=== PATIENT | male | born 1995 | race Two or more races ===

== ENCOUNTER 2025-01-26 15:00 | Emergency (ER) | payer MEDICAID, SELFPAY ==
[2025-01-26 15:32] VITALS: BP 141/90; PULSE 77; RESP 18; TEMP 37.1; O2SAT 97; BMI 31.2
--- NOTE | 2025-01-26 15:39 | XR_ITS ---
Examination: Abdomen sonogram, Limited Date and time of exam: January 26, 2025 1542 hours INDICATIONS: Epigastric pain beginning 3 days ago Technique: Real-time mackey scale transabdominal sonographic images of the upper abdomen obtained. Findings: Normal gallbladder. Normal common bile duct 0.2 cm Pancreatic head 2.6 cm Liver 13.1 cm smooth contour no focal liver lesions Normal hepatopedal portal venous flow Patent IVC IMPRESSION: Normal gallbladder Fatty infiltration throughout the liver
--- NOTE | 2025-01-26 15:41 | PD.EDABDPN ---
ED Abdominal Pain RME/HPI General Chief Complaint: Abdominal Pain Stated complaint: Abdominal pain after eating Time seen by provider: 01/26/25 15:20 Arrival date/time: 01/26/25 15:00 RME / HPI RME / HPI narrative: 29-year-old male patient came in for evaluation regarding epigastric pain. Onset of symptoms for the last few days as epigastric pain especially after eating, severity moderate. No vomiting no fever no diarrhea no constipation no other complaints noted. Patient denies any alcohol abuse. Related Data Previous Rx's ?Medication ?Instructions ?Recorded sertraline 50 mg tablet 50 mg PO QDAY #30 tabs 05/27/23 famotidine 40 mg tablet (Pepcid) 40 mg PO BID #20 tabs 01/26/25 ondansetron HCl 4 mg tablet 4 mg PO Q8H PRN nausea and 01/26/25 vomiting 5 days #20 tabs Allergies Allergy/AdvReac Type Severity Reaction Status Date / Time No Known Allergies Allergy Verified 01/26/25 15:04 Review of Systems Review of Systems Narrative Review of Systems: Review of system reviewed and within normal limits except mentioned in HPI ED Exam Narrative Physical exam: VITAL SIGNS: Reviewed. GENERAL APPEARANCE: Alert and interactive, follows commands, no acute distress, HEAD AND FACE: Non-traumatic. ENT: PERRL, pink conjunctivitis, eyelid no trauma, Mucous membrane moist. NECK: Supple, nontender, no nuchal rigidity. CHEST: No tenderness, no crepitus, no paradoxical movement, no retractions. LUNGS: Clear, well ventilated, symmetric, no rales, no wheezing, no ronchi, no stridor, good breath sounds bilaterally. HEART: Regular rate, regular rhythm, no murmur, no gallops. ABDOMEN: Soft, positive bowel sounds, nondistended, no guarding, epigastric tenderness, no rebound, no masses, RECTAL: Deferred. GENITAL: Deferred. NEUROLOGICAL: Gross motor function intact sensory function intact, Appropriate for age. MUSCULOSKELETAL: low back nontender, full range of motion. EXTREMITIES: Nontender, full range of motion. SKIN: Color pink, dry, no rash, no lacerations, no abrasions, no contusions. LYMPHATICS: Deferred. Course Quality Measures none Orders Category Date Time Status US gall bladder Stat Exams 01/26/25 15:39 Completed CBC Stat Lab 01/26/25 16:05 Completed Comprehensive Metabolic Panel Stat Lab 01/26/25 16:05 Completed Lipase Stat Lab 01/26/25 16:05 Completed Prothrombin Time with INR Stat Lab 01/26/25 16:05 Completed mg Hyd/Al Hyd/Seda Susp [Maalox Susp] Med 01/26/25 15:40 Discontinued 30 ml PO X1 ONE Vital Signs Vital signs: Vital Signs Temperature 98.8 F 01/26/25 15:32 Pulse Rate 77 01/26/25 15:32 Respiratory Rate 18 01/26/25 15:32 Blood Pressure 141/90 H 01/26/25 15:32 Pulse Oximetry (%) 97 01/26/25 15:32 Oxygen Delivery Method Room Air 01/26/25 15:32 Abdominal Pain MDM [facility] Narrative MDM Narrative:: 29-year-old male patient came in for evaluation regarding epigastric pain. Onset of symptoms for the last few days as epigastric pain especially after eating, severity moderate. No vomiting no fever no diarrhea no constipation no other complaints noted. Patient denies any alcohol abuse. Patient's ultrasound of the abdomen Unremarkable. Patient's workup also came back normal. Results discussed with family and patient. Patient appears nontoxic and hemodynamically stable .Decision to discharge the patient. The patient/family was given an opportunity to ask questions and understood their discharge instructions. Discharge instructions specifically included follow up provider and time frame, current and/or new medications and possible side effects, indications for sooner follow up or return to the emergency department, and the expected course of current diagnosis. Patient reports feeling better as well and giving evidence of significant clinical improvement, I believe patient is now a candidate for discharge. Patient data External records reviewed:: None Clinical information provided by:: patient and family Social determinants that could affect healthcare access:: none Patient has the following chronic illnesses:: None How is presenting disease/condition affected by chronic disease/condition?: no chronic disease Evaluation data The following diagnostics were reviewed and interpreted by me:: lab results and radiology exam(s) Lab and/or radiology exams considered but not ordered:: None Interpretation Summary: See results MDM Medications / Prescriptions Medications or Prescriptions considered but not ordered:: None Medication administrations:: Medication Administration History Discontinued Medications Al Hydrox/Mg Hydrox/Simethicone (Mg Hyd/Al Hyd/Seda (Maalox Reg) Susp 30 Ml Udc) 30 ml PO X1 ONE Stop: 08/28/25 15:41 Maalox Consultations Consultation(s) initiated? (list below): No Diagnosis Differential diagnosis abdominal pain: abdominal pain and pancreatitis Most likely diagnosis given after review of the tests above:: Gastritis Admission Indicated Admission indicated?: not indicated Explain why admission is indicated or not indicated:: None Admission Request Was there a request for admission?: No Disposition Plan Disposition Plan: Discharge Discharge Attestation Discharge Attestation: The patient and all family members were given an opportunity to ask questions and understood the discharge instructions. Discharge instructions specifically effects, indications for sooner follow up or return to the emergency department, and the expected course of current diagnosis. Patient condition: Stable Discharge Plan Plan Patient Disposition: HOME (Self Care) Discharge Disposition comment: stable Prescriptions/Referrals Prescriptions/Med Rec: New famotidine [Pepcid] 40 mg tablet 40 mg PO BID Qty: 20 0RF ondansetron HCl 4 mg tablet 4 mg PO Q8H PRN (Reason: nausea and vomiting) 5 Days Qty: 20 0RF No Action sertraline 50 mg tablet 50 mg PO QDAY Qty: 30 0RF Rx Instructions: Directions in Italian Referrals: No Primary/Family,Physician [Primary Care Provider] - In 1 week Problem List Clinical Impression: Gastritis Patient/Caregiver Discharge Instructions Discharge Activity: activity as tolerated Education Materials: ED Gastritis (Adult) Additional Instructions: Thank you for the opportunity for serving you today. You are stable for discharged . You are advised to: Follow-up with your PCP in 1 to 2 days Return to ED for worsening of symptoms Increase oral fluids Take medication as prescribed Print Language: Italian Stand Alone Forms: Stacie Award Info., Patient Portal Info Letter GISSEL/JOE Supervising Physician SUSANA Supervising Physician: MD Ayaz
[2025-01-26 16:20] LABS: Basophils # (Auto) 0.1 Thou/mm3 (0.0-0.2); Basophils % (Auto) 1 % (0-2.5); Eosinophils # (Auto) 0.1 Thou/mm3 (0.0-0.5); Eosinophils % (Auto) 2 % (0-10); Hematocrit 43.9 % (41.0-53.0); Hemoglobin 16.1 g/dL (13.5-16.0); Immature Granulocytes Auto 0.06 Thou/mm3 (0.00-0.00); Lymphocytes # (Auto) 2.1 Thou/mm3 (1.0-4.8); Lymphocytes % (Auto) 27 % (10-50); Mean Corpuscular HGB Conc 36.7 g/dl (31.0-37.0); Mean Corpuscular Hemoglobin 30.7 pg (25.0-35.0); Mean Corpuscular Volume 84 fL (80-100); Monocytes # (Auto) 0.6 Thou/mm3 (0.0-0.8); Monocytes % (Auto) 8 % (0-12); Neutrophils # (Auto) 4.9 Thou/mm3 (1.8-7.7); Neutrophils % (Auto) 63 % (37-80); Nucleated Red Blood Cell # 0.00 Thou/mm3 (0.00-0.00); Nucleated Red Blood Cell % 0 /100 WBC (0); Platelet Count 179 Thou/mm3 (140-440); RDW Standard Deviation 37.3 fL (35.1-43.9); Red Blood Count 5.24 Miln/mm3 (4.50-5.90); White Blood Count 7.8 Thou/mm3 (3.8-10.6)
[2025-01-26 16:35] LABS: INR 1.1 (0.9-1.3); Prothrombin Time 11.5 Seconds (9.0-12.2)
[2025-01-26 16:47] LABS: Alanine Aminotransferase 42 U/L (10-49); Albumin, Serum 4.8 gm/dL (3.5-5.0); Albumin/Globulin Ratio 2.3 (1.2-2.2); Alkaline Phosphatase 80 U/L (46-116); Anion Gap 9 (7-16); Aspartate Amino Transferase 27 U/L (0-34); BUN/Creatinine Ratio 13 Ratio (12-20); Bilirubin,Total 0.9 mg/dL (0.3-1.2); Blood Urea Nitrogen 13 mg/dL (9-23); Calcium 10.0 mg/dL (8.3-10.6); Calcium (Corrected) 10.0 mg/dL (8.5-10.1); Carbon Dioxide 28.5 mMol/L (20.0-31.0); Chloride 106 mMol/L (98-107); Creatinine (Component) 1.0 mg/dL (0.6-1.3); Estimated Creatinine Clearance 126.2 mL/min (>60); Globulin 2.1 gm/dL (2.3-3.5); Glucose 82 mg/dL (74-106); Lipase 22 U/L (12-53); Osmolality,Calculated 284 (275-295); Potassium 3.8 mMol/L (3.4-5.1); Sodium 143 mMol/L (136-145); Total Protein 6.9 gm/dL (5.7-8.2); eGFR > 60 See Note
[2025-01-26 17:06] VITALS: BP 139/69; PULSE 83; RESP 17; TEMP 36.7; O2SAT 96
== END 2025-01-26 17:06 | disposition home or self-care (01) ==
PROVIDERS: Nurse Practitioner Family; Emergency Provider Family Medicine
DX: K29.70 Gastritis, unspecified, without bleeding (principal)
CPT/HCPCS: 36415; 76705; 80053; 83690; 85025; 85610; 99283

== ENCOUNTER 2025-03-14 08:32 | Emergency (ER) | payer MEDICAID, SELFPAY ==
[2025-03-14 08:44] VITALS: BP 136/87; PULSE 79; RESP 16; TEMP 37; O2SAT 98; BMI 29.8
--- NOTE | 2025-03-14 08:47 | XR_ITS ---
Examination: Abdomen sonogram, Limited Date and time of exam: March 14, 2025, 0900 hours INDICATIONS: Onset right upper abdominal pain beginning 2 days ago Technique: Real-time mackey scale transabdominal sonographic images of the upper abdomen obtained. Findings: Normal gallbladder. Normal common bile duct 0.3 cm Pancreatic head 2.5 cm Liver 15 cm fatty infiltration Normal hepatopetal portal venous flow Patent IVC IMPRESSION: Negative study
--- NOTE | 2025-03-14 08:47 | XR_ITS ---
Examination: Abdomen AP single view Technique: AP portable supine abdomen, single view Exam date and time: March 14, 2025, 0844 hours INDICATIONS: Abdominal pain and constipation beginning 2 days ago FINDINGS: Multiple air distended small bowel loops No free air Intact osseous structures IMPRESSION: Small bowel obstruction pattern, consider CT scan abdomen pelvis post intravenous contrast follow-up
--- NOTE | 2025-03-14 08:50 | EDNOTE_ITS ---
ED Abdominal Pain RME/HPI General Chief Complaint: Abdominal Pain Stated complaint: ABD PAIN Time seen by provider: 03/14/25 08:35 Arrival date/time: 03/14/25 08:32 29-year-old male with no known medical history presents to the emergency room with a chief complaint of epigastric abdominal pain x 2 days Source: patient Mode of arrival: ambulatory Limitations: no limitations Related Data Previous Rx's ?Medication ?Instructions ?Recorded sertraline 50 mg tablet 50 mg PO QDAY #30 tabs 05/27 famotidine 40 mg tablet (Pepcid) 40 mg PO BID #20 tabs 01/26/25 Allergies Allergy/AdvReac Type Severity Reaction Status Date / Time No Known Allergies Allergy Verified 03/14/25 11:08 Review of Systems Review of Systems Systems Reviewed: All systems reviewed, normal except as documented Constitutional Constitutional: Reports system reviewed and no additional complaints, except as documented, Denies fatigue, Denies fever(s), Denies headache(s) and Denies weakness Eyes Eyes: Reports system reviewed and no additional complaints, except as documented, Denies blurry vision and Denies change in vision ENT Ears, Nose, Mouth, and Throat: Reports system reviewed and no additional complaints, except as documented, Denies otalgia, Denies headache(s), Denies nasal congestion, Denies throat swelling and Denies vertigo Cardiovascular Cardiovascular: Reports system reviewed and no additional complaints, except as documented, Denies chest pain, Denies dyspnea and Denies dyspnea on exertion Respiratory Respiratory: Reports system reviewed and no additional complaints, except as documented, Denies chest congestion, Denies cough, Denies dyspnea, Denies dyspnea on exertion and Denies wheezing Gastrointestinal Gastrointestinal: Reports system reviewed and no additional complaints, except as documented, Reports abdominal pain, Reports cramping, Reports nausea and Denies vomiting Genitourinary Genitourinary: Reports system reviewed and no additional complaints, except as documented, Denies dysuria and Denies hematuria Musculoskeletal Musculoskeletal: Reports system reviewed and no additional complaints, except as documented and Denies back pain Integumentary/Breasts Skin/Breast: Reports system reviewed and no additional complaints, except as documented and Denies wounds Neurologic Neurologic: Reports system reviewed and no additional complaints, except as docu mented, Denies confusion, Denies headache(s), Denies lack of coordination, Denies vertigo and Denies weakness Psychiatric Psychiatric: Reports system reviewed and no additional complaints, except as documented, Denies anxiety, Denies confusion, Denies depression, Denies paranoia, Denies suicidal ideation and Denies tactile hallucinations Endocrine Endocrine: Reports system reviewed and no additional complaints, except as documented and Denies fatigue Hematologic/Lymphatic Hematologic/Lymphatic: Reports system reviewed and no additional complaints, except as documented and Denies lymphadenopathy Allergic/Immunologic Allergic/Immunologic: Reports system reviewed and no additional complaints, except as documented, Denies throat swelling, Denies urticaria and Denies wheezing Past Medical History Past Medical History CARDIAC: Negative Cardiac Disorders or Congestive Heart Failure RESPIRATORY: Negative Chronic Obstructive Pulmonary Disease (COPD) or Asthma GENITOURINARY: Negative Renal Disease ENDOCRINE: Negative Diabetes Mellitus Type 1 or Diabetes Mellitus Type 2 HEMATOLOGIC: Negative Sickle Cell Disease Social History SMOKING STATUS: Never smoker SECOND HAND EXPOSURE: Yes ED Exam General Limitations: Present no limitations General appearance: Present alert and in no apparent distress Head Head exam: Present atraumatic Eye Eye exam: Present normal appearance, PERRL and EOMI ENT ENT exam: Present normal exam, normal oropharynx and mucous membranes moist Neck Neck exam: Present normal inspection, full ROM and trachea midline Chest Chest inspection: Present normal inspection and symmetric chest wall rise Respiratory Respiratory exam: Present normal lung sounds bilaterally Cardiovascular Cardiovascular exam: Present regular rate, normal rhythm and normal heart sounds Abdominal Exam Abdominal exam: Present soft, tenderness and normal bowel sounds; Absent distention, guarding, rebound, rigidity or Pitt's sign Abdominal tenderness: Present epigastrium and moderate Extremities Exam Extremities exam: Present normal inspection and full ROM Back Exam Back exam: Present normal inspection and full ROM Neurological Exam Neurological exam: Present alert, oriented X3 and CN II-XII intact Psychiatric Psychiatric exam: Present normal affect and normal mood Skin Skin exam: Present warm, dry, intact and normal color Course Quality Measures none Orders Category Date Time Status COVID-19 Screening Questionnaire NOW Care 03/14/25 13:45 Active Decision to Admit X1 Care 03/14/25 13:45 Active Insert IV STAT Care 03/14/25 13:[address] abdomen pelvis wo con Stat Exams 03/14/25 09:40 Completed US gall bladder Stat Exams 03/14/25 08:47 Completed XR abdomen 1V Stat Exams 03/14/25 08:47 Completed XR abdomen 1V Urgent Exams 03/14/25 13:45 Ordered XR abdomen 1V Urgent Exams 03/14/25 15:45 Ordered XR abdomen 1V Urgent Exams 03/14/25 17:54 Ordered XR small bowel single contrast Stat Exams 03/14/25 12:12 Completed CBC Stat Lab 03/14/25 09:03 Completed CMP [Comprehensive Metabolic Panel] Stat Lab 03/14/25 09:03 Completed Lipase Stat Lab 03/14/25 09:03 Completed UA [Urinalysis] Stat Lab 03/14/25 08:55 Completed Urine Culture Stat Lab 03/14/25 08:55 Received Ketorolac Inj [Toradol Inj] Med 03/14/25 08:47 Discontinued 30 mg IM X1 ONE Sodium Chloride 0.9% 1000 ml [Ns] 1,000 ml Med 03/14/25 13:46 Ordered IV 125 mls/hr Vital Signs Vital signs: Vital Signs Temperature 98.6 F 03/14/25 08:44 Pulse Rate 79 03/14/25 08:44 Respiratory Rate 16 03/14/25 08:44 Blood Pressure 136/87 H 03/14/25 08:44 Pulse Oximetry (%) 98 03/14/25 08:44 Oxygen Delivery Method Room Air 03/14/25 08:44 Abdominal Pain MDM MDM Narrative MDM Narrative:: 29-year-old male with no known medical history presents to the emergency room with a chief complaint of epigastric abdominal pain x 2 days Patient is hemodynamically stable and in no apparent distress Physical examination shows tenderness and pain to the patient's epigastric area of the abdomen. X-ray of the abdomen was completed and shows multiple air distended small bowel loops and a recommendation for a CT scan to rule out a small bowel obstruction. A CT scan was completed and shows suspicious for early small bowel obstruction and a recommendation for a small bowel series with Gastrografin was ordered. I spoke to the hospitalist team who will admit the patient Patient was discharged and educated to follow-up with primary care provider in the next 24 to 48 hours and return to the emergency room for any evidence of worsening signs or symptoms Patient data External records reviewed:: [facility] [place] previous records Clinical information provided by:: patient Social determinants that could affect healthcare access:: none Patient has the following chronic illnesses:: No chronic illness How is presenting disease/condition affected by chronic disease/condition?: no chronic disease Evaluation data The following diagnostics were reviewed and interpreted by me:: lab results and radiology exam(s) Lab and/or radiology exams considered but not ordered:: Labs and radiology exams considered and ordered Interpretation Summary: Ultrasound gallbladder-Findings: Normal gallbladder. Normal common bile duct 0.3 cm Pancreatic head 2.5 cm Liver 15 cm fatty infiltration Normal hepatopetal portal venous flow Patent IVC IMPRESSION: Negative study X-ray abdomen-FINDINGS: Multiple air distended small bowel loops No free air Intact osseous structures IMPRESSION: Small bowel obstruction pattern, consider CT scan abdomen pelvis post intravenous contrast follow-up CT abdomen and pelvis-Findings: No visualized liver or splenic lesion Contracted gallbladder No pancreatic or adrenal mass No renal or ureteral calculi, no hydronephrosis. Normal appendix. Multiple fluid distended small bowel loops in the anterior upper abdomen No ascites Urinary bladder intact Osseous structures intact IMPRESSION: Suspicious for early small bowel obstruction, consider Gastrografin small bowel series follow-up Small bowel series-IMPRESSION: Contrast opacified and distended small bowel loops Recommend follow-up abdomen films 2:00 p.m., 4:00 p.m., 6:00 p.m. Medications / Prescriptions Medications or Prescriptions considered but not ordered:: Medication given Medication administrations:: Medication Administration History Sodium Chloride (Ns) 1,000 mls @ 125 mls/hr IV .Q8H ONE Stop: 03/14/25 21:45 Discontinued Medications Ketorolac Tromethamine (Ketorolac Inj 60 Mg/2 Ml Vial) 30 mg IM X1 ONE Stop: 03/14/25 08:48 Last Admin: 03/14/25 08:55 Dose: 30 mg Documented By: KM Medication given Consultations Consultation(s) initiated? (list below): No Diagnosis Differential diagnosis abdominal pain: abdominal pain, constipation, gastroenteritis and other (Cholecystitis/Taryn lithiasis) Most likely diagnosis given after review of the tests above:: Small bowel obstruction Admission Indicated Admission indicated?: indicated Admission Request Was there a request for admission?: Yes Admission Attestation Admission request attestation: Discussed case with [] from Hospitalist service regarding admission. Discussed patients ED course, exam findings, labs, and radiology results. The Hospitalist [agrees,declines] to accept the patient for admission. Disposition Plan Disposition Plan: Admit Discharge Plan Plan Patient Disposition: Admit Acute Care w/in Hospital Discharge Disposition comment: Stable Prescriptions/Referrals Prescriptions/Med Rec: No Action sertraline 50 mg tablet 50 mg PO QDAY Qty: 30 0RF Rx Instructions: Directions in Tristanian famotidine [Pepcid] 40 mg tablet 40 mg PO BID Qty: 20 0RF Referrals: Ramin Skelton MD [Primary Care Provider, Family Practice] - In 1 week Problem List Clinical Impression: Small bowel obstruction Patient/Caregiver Discharge Instructions Print Language: Tristanian Stand Alone Forms: Stacie Award Info., Patient Portal Info Letter
[2025-03-14] MEDS: KETOROLAC INJ 60 MG/2 ML VIAL 30 MG IM (08:55)
[2025-03-14 09:16] LABS: Collection Type, Urine Clean Catch; Squamous Epithelial Cell,Urine 0 /hpf (0-5)
[2025-03-14 09:25] LABS: Basophils # (Auto) 0.0 Thou/mm3 (0.0-0.2); Basophils % (Auto) 0 % (0-2.5); Eosinophils # (Auto) 0.0 Thou/mm3 (0.0-0.5); Eosinophils % (Auto) 1 % (0-10); Hematocrit 46.0 % (41.0-53.0); Hemoglobin 16.6 g/dL (13.5-16.0); Immature Granulocytes Auto 0.04 Thou/mm3 (0.00-0.00); Lymphocytes # (Auto) 1.0 Thou/mm3 (1.0-4.8); Lymphocytes % (Auto) 13 % (10-50); Mean Corpuscular HGB Conc 36.1 g/dl (31.0-37.0); Mean Corpuscular Hemoglobin 29.8 pg (25.0-35.0); Mean Corpuscular Volume 83 fL (80-100); Monocytes # (Auto) 0.7 Thou/mm3 (0.0-0.8); Monocytes % (Auto) 9 % (0-12); Neutrophils # (Auto) 6.0 Thou/mm3 (1.8-7.7); Neutrophils % (Auto) 76 % (37-80); Nucleated Red Blood Cell # 0.00 Thou/mm3 (0.00-0.00); Nucleated Red Blood Cell % 0 /100 WBC (0); Platelet Count 173 Thou/mm3 (140-440); RDW Standard Deviation 36.8 fL (35.1-43.9); Red Blood Count 5.57 Miln/mm3 (4.50-5.90); White Blood Count 7.8 Thou/mm3 (3.8-10.6)
[2025-03-14 09:34] LABS: Bacteria,Urine Rare; Bilirubin,Urine Negative (Negative); Blood,Urine Negative (Negative); Clarity,Urine Clear (Clear/Hazy); Color,Urine Yellow (Lt Yel-Yel); Glucose, Urine Negative (Negative); Ketones,Urine Negative (Negative); Leukocyte Esterase,Urine Negative (Negative); Nitrite,Urine Negative (Negative); PH,Urine 7.5 (5.0-7.0); Protein,Urine Trace (Neg - Trace); RBC,Urine 2 /hpf (0-3); Specific Gravity,Urine 1.020 (1.001-1.035); Urobilinogen,Urine 3.0 mg/dL (0.0-1.0); WBC,Urine 1 /hpf (0-5)
--- NOTE | 2025-03-14 09:40 | XR_ITS ---
Examination: CT abdomen and pelvis without contrast. Coronal 3-D reconstructions. Sagittal 2-D reconstructions. Date and time of exam: March 14, 2025, 10:23 a.m., comparison 02/21/2018 INDICATIONS: Mid abdominal pain and nausea today CTDI: vol (mGy): 10 DLP: (mGycm): 636 Technique: Axial images of the abdomen have been obtained, 3 mm slice thickness Intravenous contrast material has not been administered. Low dose protocols were performed. One or more of the following dose reduction techniques were used; automated exposure control, adjustment of the mA and/or KV according to patient size, use of iterative reconstruction technique. Findings: No visualized liver or splenic lesion Contracted gallbladder No pancreatic or adrenal mass No renal or ureteral calculi, no hydronephrosis. Normal appendix. Multiple fluid distended small bowel loops in the anterior upper abdomen No ascites Urinary bladder intact Osseous structures intact IMPRESSION: Suspicious for early small bowel obstruction, consider Gastrografin small bowel series follow-up
[2025-03-14 09:44] LABS: Alanine Aminotransferase 33 U/L (10-49); Albumin, Serum 4.9 gm/dL (3.5-5.0); Albumin/Globulin Ratio 2.0 (1.2-2.2); Alkaline Phosphatase 92 U/L (46-116); Anion Gap 9 (7-16); Aspartate Amino Transferase 22 U/L (0-34); BUN/Creatinine Ratio 7 Ratio (12-20); Bilirubin,Total 1.6 mg/dL (0.3-1.2); Blood Urea Nitrogen 7 mg/dL (9-23); Calcium 8.9 mg/dL (8.3-10.6); Calcium (Corrected) 8.9 mg/dL (8.5-10.1); Carbon Dioxide 28.4 mMol/L (20.0-31.0); Chloride 102 mMol/L (98-107); Creatinine (Component) 1.0 mg/dL (0.6-1.3); Estimated Creatinine Clearance 130.9 mL/min (>60); Globulin 2.4 gm/dL (2.3-3.5); Glucose 110 mg/dL (74-106); Lipase 20 U/L (12-53); Osmolality,Calculated 276 (275-295); Potassium 3.7 mMol/L (3.4-5.1); Sodium 139 mMol/L (136-145); Total Protein 7.3 gm/dL (5.7-8.2); eGFR > 60 See Note
--- NOTE | 2025-03-14 10:05 | PC.NURSE ---
SPOKE W/ ELDER IN CT RE: WHEN PT WAS GOING TO BE TAKEN. HE WILL GET HIM SHORTLY.
--- NOTE | 2025-03-14 12:12 | XR_ITS ---
EXAMINATION: Small bowel series AP abdomen 2 views Date and time: March 14, 2025, 12:38 p.m. INDICATIONS: Abdominal pain and distention this week, small bowel obstruction pattern on CT abdomen pelvis study this morning TECHNIQUE AND FINDINGS: Patient received 120 cc Gastrografin with AP supine abdomen films 10 minutes and 30 minutes Contrast in distended small bowel loops IMPRESSION: Contrast opacified and distended small bowel loops Recommend follow-up abdomen films 2:00 p.m., 4:00 p.m., 6:00 p.m.
[2025-03-14 12:30] VITALS: BP 127/87; PULSE 75; RESP 16; TEMP 36.8; O2SAT 97
--- NOTE | 2025-03-14 13:45 | XR_ITS ---
Examination: Abdomen AP single view Technique: AP portable supine abdomen, single view Exam date and time: March 14, 2025, 1352 hours INDICATIONS: Abdominal distention today, small bowel series, 1 hour delay film post small bowel series today FINDINGS: Contrast now present in the colon IMPRESSION: Negative for small bowel obstruction, no further films are needed
[2025-03-14 14:30] VITALS: BP 136/86; PULSE 81; RESP 17; TEMP 37.2; O2SAT 97
--- NOTE | 2025-03-14 17:19 | ESCONSULT_ITS ---
[facility] Consultation - Hospitalist Data of Consult Primary Care Provider: Ramin Skelton MD Consult Narrative History of present illness: 29-year-old male with no pertinent past medical history except for anxiety/depression who presented with a chief complaint of abdominal pain. He reported no nausea or vomiting at the time of my evaluation Patient reported no other symptoms. He reported being overall healthy. In the ED, his vital signs were stable. Labs were nonpertinent. CT scan of the abdomen/pelvis showed early SBO. Subsequent films showed resolution of SBO. cc:: cc: Review of Systems Review of Systems Narrative Review of Systems: 12 point of system reviewed. All negative except as mentioned in HPI Meds Home Medications and Allergies Allergies Allergy/AdvReac Type Severity Reaction Status Date / Time No Known Allergies Allergy Verified 03/14/25 11:08 Exam Vital Signs Temp Pulse Resp BP Pulse Ox O2 Del Method 98.9 F 81 17 136/86 H 97 Room Air 03/14/25 14:30 03/14/25 14:30 03/14/25 14:30 03/14/25 14:30 03/14/25 14:30 03/14/25 14:30 Narrative General: Alert and oriented x3. In no acute distress. Eyes: Pupils are equal and reactive to light bilaterally. HEENT: Atraumatic, normocephalic. No JVD noted. Cardiovascular: Normal S1 and S2. Normal rate and regular rhythm. No murmurs appreciated. No peripheral pitting edema noted. No JVD noted. Respiratory: No respiratory distress. Lungs are clear to auscultation bilaterally. No wheezing or crackles heard. Abdomen: Soft, nontender, nondistended. Skin: No rash. Musculoskeletal: No gross injuries. Able to move all 4 extremities. Neuro: Alert and oriented x3. Sensation is intact throughout. Strength is 5/5 and symmetric. No focal neuro deficits. Psych: Normal affect and mood. Results - Hospitalist Labs Diagrams: 03/14/25 09:03 03/14/25 09:03 Labs: Short CBC 03/14/25 Range/Units 09:03 WBC 7.8 (3.8-10.6) Thou/mm3 Hgb 16.6 H (13.5-16.0) g/dL Hct 46.0 (41.0-53.0) % Plt Count 173 (140-440) Thou/mm3 BMP 03/14/25 09:03 Sodium 139 Potassium 3.7 Chloride 102 Carbon Dioxide 28.4 BUN 7 L Creatinine 1.0 Glucose 110 H Calcium 8.9 Liver Function 03/14/25 Range/Units 09:03 Total Bilirubin 1.6 H (0.3-1.2) mg/dL AST 22 (0-34) U/L ALT 33 (10-49) U/L Alkaline Phosphatase 92 (46-116) U/L Albumin 4.9 (3.5-5.0) gm/dL Urine 03/14/25 Range/Units 08:55 Urine Color Yellow (Lt Yel-Yel) Urine Clarity Clear (Clear/Hazy) Urine pH 7.5 H (5.0-7.0) Ur Specific [place] 1.020 (1.001-1.035) Urine Protein Trace (Neg - Trace) Urine Glucose (UA) Negative (Negative) Assessment & Plan -Hospitalist Patient Synopsis 29-year-old male who presented with a chief complaint of abdominal pain and was found to have early SBO Epigastric pain SBO, resolved Initial CT was suspicious for early SBO however subsequent film showed resolution of SBO Patient has minimal symptoms Patient is willing to go home. Return to ED instructions given Anxiety/depression Continue home medications. Outpatient follow-up with PCP Quality Measures Quality Measures none
== END 2025-03-14 15:10 | disposition home or self-care (01) ==
PROVIDERS: Emergency Provider Nurse Practitioner Family; PCP Family Medicine
DX: K56.609 Unspecified intestinal obstruction, unspecified as to partial versus complete obstruction (principal)
CPT/HCPCS: 36415; 74018; 74176; 74250; 76705; 80053; 81001; 83690; 85025; 87086; 96372; 99283; A4649; J1885